=== PATIENT | male | born 1975 | race American Indian/Alaskan Native ===

== ENCOUNTER 2024-05-16 17:12 | Emergency (ER) | payer OTHER ==
[~2024-05-16] VITALS: Ht 175.3 cm; Wt 99.8 kg
[2024-05-16 17:27] VITALS: BP 129/88
[2024-05-16] MEDS ORDERED: Diphth,Pertuss(Acell),Tet Vac 0.5 ML VIAL IM ONE (19:25)
== END 2024-05-16 20:19 | disposition home or self-care (01) ==
LOC: ER 17:12
DX: S61.411A Laceration without foreign body of right hand, initial encounter (principal); I69.351 Hemiplegia and hemiparesis following cerebral infarction affecting right dominant side; W26.0XXA Contact with knife, initial encounter
CPT/HCPCS: 12001; 73130; 90471; 90715; 99283-25